=== PATIENT | male | born 1995 | race Caucasian/White ===

== ENCOUNTER → 2017-03-26 | Outpatient (CLI) | payer OTHER | LOC: BMCIMAGING 13:28 | PROVIDERS: ATTEND Orthopaedic Surgery Hand Surgery | DX: S62.392D Other fracture of third metacarpal bone, right hand, subsequent encounter for fracture with routine healing (principal) ==

== ENCOUNTER → 2017-04-01 | Outpatient (CLI) | payer OTHER | LOC: BMCIMAGING 13:36 | PROVIDERS: ATTEND Orthopaedic Surgery Hand Surgery | DX: S62.322D Displaced fracture of shaft of third metacarpal bone, right hand, subsequent encounter for fracture with routine healing (principal) ==